=== PATIENT | male | born 1995 | race African-American/Black ===

== ENCOUNTER 2017-07-25 12:04 | Emergency (ER) | payer SELFPAY ==
[~2017-07-25] VITALS: Ht 175.3 cm; Wt 114.1 kg
[2017-07-25] MEDS ORDERED: VENTOLIN HFA18 GM IH (18:03)
[2017-07-25 18:16] VITALS: BP 130/88
== END 2017-07-25 18:17 | disposition home or self-care (01) ==
LOC: EME 12:04
DX: J45.901 Unspecified asthma with (acute) exacerbation (principal); Z90.49 Acquired absence of other specified parts of digestive tract
CPT/HCPCS: 80048; 85027; 94640; 99281; 99285; J1100

== ENCOUNTER 2017-08-15 12:44 | Observation (INO) | payer SELFPAY ==
[~2017-08-15] VITALS: Ht 175.3 cm; Wt 114.3 kg
[~2017-08-15 12:44] MED LIST: VENTOLIN HFA18 GM IH
[2017-08-15 13:10] LABS: HEMATOCRIT 43.5 % (38.0-50.0); HEMOGLOBIN 14.7 G/DL (12.5-16.6); MCH 29.6 PG (29.0-34.0); MCHC 33.8 G/DL (30.0-36.0); MCV 87.5 FL (86-99); PLATELET COUNT 233 K/uL (156-360); RBC DIS.WIDTH-CV 12.3 % (11.8-14.6); RBC DIS.WIDTH-SD 39.6 % (39-53); RED BLOOD COUNT 4.97 M/uL (4.00-5.50); WHITE BLOOD COUNT 6.8 K/uL (4.1-10.2)
[2017-08-15 13:35] LABS: CHLORIDE 102 MEQ/L (99-109); POTASSIUM 3.9 MEQ/L (3.7-5.4); SODIUM 137 MEQ/L (136-147)
[2017-08-15 13:40] LABS: CREATININE 1.1 MG/DL (0.6-1.3); GFR ESTIMATE (CALCULATED) > 59 mL/min/ (58.99-99999); GLUCOSE 101 mg/dL (70-99); UREA NITROGEN (BUN) 10 mg/dL (9-23)
[2017-08-15 13:45] LABS: TROP-I INTERPRETATION NEGATIVE; TROPONIN-I < 0.01 ng/mL (0.0-0.30)
[2017-08-15 14:18] LABS: D-DIMER ELISA < 150.00 ng/mLDDU (<230)
[2017-08-15 14:51] LABS: CARBON DIOXIDE (BICARBONATE) 26.5 MEQ/L (20-31)
[2017-08-15] MEDS ORDERED: VENTOLIN HFA18 GM IH (15:24)
[2017-08-15] MEDS ORDERED: DAY TIME COLD-1 EACH PO (15:25)
[2017-08-15 17:50] VITALS: BP 122/57
[2017-08-15 19:15] VITALS: BP 120/54
[2017-08-15 20:05] LABS: TROP-I INTERPRETATION NEGATIVE; TROPONIN-I < 0.01 ng/mL (0.0-0.30)
[2017-08-15 23:49] VITALS: BP 102/53
[2017-08-16 01:49] LABS: TROP-I INTERPRETATION NEGATIVE; TROPONIN-I < 0.01 ng/mL (0.0-0.30)
[2017-08-16 03:54] VITALS: BP 108/65
[2017-08-16 06:29] LABS: HEMATOCRIT 40.5 % (38.0-50.0); HEMOGLOBIN 13.2 G/DL (12.5-16.6); MCH 28.9 PG (29.0-34.0); MCHC 32.6 G/DL (30.0-36.0); MCV 88.6 FL (86-99); PLATELET COUNT 233 K/uL (156-360); RBC DIS.WIDTH-CV 12.8 % (11.8-14.6); RBC DIS.WIDTH-SD 41.5 % (39-53); RED BLOOD COUNT 4.57 M/uL (4.00-5.50); WHITE BLOOD COUNT 6.5 K/uL (4.1-10.2)
[2017-08-16 07:02] LABS: CHLORIDE 103 MEQ/L (99-109); CREATININE 0.9 MG/DL (0.6-1.3); GFR ESTIMATE (CALCULATED) > 59 mL/min/ (58.99-99999); GLUCOSE 127 mg/dL (70-99); POTASSIUM 4.4 MEQ/L (3.7-5.4); SODIUM 135 MEQ/L (136-147); UREA NITROGEN (BUN) 11 mg/dL (9-23)
[2017-08-16 08:18] VITALS: BP 131/78
[2017-08-16] MEDS ORDERED: FLONASE16 G1 BOTH NARES (08:18)
[2017-08-16] MEDS ORDERED: OSELTAMIVIR PHO75 MG PO (08:18)
[2017-08-16] MEDS ORDERED: PREDNISONE10 M1 PO (08:18)
[2017-08-16] MEDS ORDERED: DULERA 100 MCG/13 GM IH (08:18)
[2017-08-16 12:50] VITALS: BP 120/69
== END 2017-08-16 15:14 | disposition home or self-care (01) ==
LOC: EME 12:44 → EDOF 14:51 → ENRESERV 14:53 → 5WEST 17:32
PROVIDERS: Emergency Medicine; Hospitalist
DX: J45.901 Unspecified asthma with (acute) exacerbation (principal); J10.1 Influenza due to other identified influenza virus with other respiratory manifestations; R94.31 Abnormal electrocardiogram [ECG] [EKG]; K76.0 Fatty (change of) liver, not elsewhere classified; E66.9 Obesity, unspecified; Z68.37 Body mass index [BMI] 37.0-37.9, adult; Z90.49 Acquired absence of other specified parts of digestive tract; Z80.9 Family history of malignant neoplasm, unspecified; Z82.5 Family history of asthma and other chronic lower respiratory diseases; Z83.3 Family history of diabetes mellitus; Z82.49 Family history of ischemic heart disease and other diseases of the circulatory system
CPT/HCPCS: 71046; 71275; 80048; 82803; 84484; 85027; 85379; 87502; 93005; 94640; 94640 76; 94644; 99202; 99281; 99285; G0378; J2930; J3475; J7512